=== PATIENT | female | born 1955 | race Caucasian/White ===

== ENCOUNTER 2021-04-19 11:01 | Emergency (ER) | payer OTHER ==
--- NOTE | 2021-04-19 12:17 | ED Physician Documentation ---
History of Present Illness - Stated complaint Stated Complaint: GLF-BLURRY VISION - Chief complaint Chief Complaint: Trauma Ext - History obtained from History obtained from: Patient, Family - History of Present Illness Timing: Today Pain level max: 3 Pain level now: 1 - Additonal information Additional information: 65 year old female states she was walking today and tripped on a curb. landed on her L hand, L knee and L cheek. States had about 3 minutes where she could only see shapes. States that it resolved quickly and has not recurred. No vision changes now. Td UTD. Nothing makes it better or worse. No loss consciousness. No vomiting. No neck pain. No back pain. No numbness or tingling. Review of Systems Constitutional: denies: Fever, Chills GI: denies: Vomiting Skin: denies: Rash Musculoskeletal: denies: Neck pain, Back pain Neurologic: denies: Headache PD PAST MEDICAL HISTORY - Past Medical History Cardiovascular: None Respiratory: None Neuro: None Endocrine/Autoimmune: None GI: None PEN RIDER: None : Retention HEENT: None Psych: None Musculoskeletal: None Derm: Other drug resistant infections - Past Surgical History Past Surgical History: Yes - Present Medications Home Medications: Ambulatory Orders Medication Instructions Recorded Confirmed No Known Home Medications 04/19/21 04/19/21 - Allergies Allergies/Adverse Reactions: Allergies Allergy/AdvReac Type Severity Reaction Status Date / Time codeine AdvReac Itching Verified 04/19/21 11:12 - Social History Does the pt smoke?: No Smoking Status: Never smoker Does the pt drink ETOH?: Yes Does the pt have substance abuse?: No - Immunizations Immunizations are current?: Yes PD ED PE NORMAL - Vitals Vital signs reviewed: Yes - General General: Alert and oriented X 3, No acute distress - HEENT HEENT: PERRL, EOMI, Moist mucous membranes, Other (Normal funduscopic exam bilaterally. No hyphema. Normal pupils.) - Neck Neck: Supple, no meningeal sign - Cardiac Cardiac: RRR - Respiratory Respiratory: No respiratory distress, Clear bilaterally - Derm Derm: Warm and dry - Neuro Neuro: Alert and oriented X 3 - Psych Psych: Normal mood, Normal affect Results - Vitals Vitals: Vital Signs - 24 hr 04/19/21 04/19/21 11:12 12:14 Temperature 36.7 C Heart Rate 66 61 Respiratory 16 16 Rate Blood Pressure 129/71 118/81 H O2 Saturation 96 100 Oxygen O2 Source Room air - Rads (name of study) head CT Radiology: Final report received, EMP read contemporaneously, See rad report (No acute abnormality) PD MEDICAL DECISION MAKING - ED course Complexity details: reviewed results, re-evaluated patient, considered differential, d/w patient ED course: Unclear etiology the patient's symptoms. Normal examination today. Normal funduscopic exam. Normal vision. No acute findings on head CT. We will have her follow-up with her contact and service clerks supervisor when she returns home next week to [place]. They are leaving tomorrow. Normal neurological exam. Normal cranial nerves. Normal gait. Patient counseled regarding signs and symptoms for which I believe and urgent re-evaluation would be necessary. Patient with good understanding of and agreement to plan and is comfortable going home at this time This document was made in part using voice recognition software. While efforts are made to proofread this document, sound alike and grammatical errors may occur. Departure - Departure Disposition: 01 Home, Self Care Clinical Impression: Vision changes, Abrasion Head injury Qualifiers: Encounter type: initial encounter Qualified Code(s): S09.90XA - Unspecified injury of head, initial encounter Condition: Good Instructions: ED Head Injury Closed Follow-Up: your,doctor in 1 week [Other] Comments: Your imaging appears normal today. Your exam is normal today as well. Unclear etiology of your symptoms, would recommend that you follow-up with an contact and service clerks supervisor when you return home for a full dilated eye exam. Return if you worsen.
--- NOTE | 2021-04-19 12:44 | CT Report ---
PROCEDURE: HEAD WO INDICATIONS: Trauma, fall, head injury TECHNIQUE: Noncontrast 4.5 mm thick angled axial sections acquired from the foramen magnum to the vertex. For r adiation dose reduction, the following was used: automated exposure control, adjustment of mA and/or kV according to patient size. COMPARISON: None. FINDINGS: Image quality: Excellent. CSF spaces: Basal cisterns are patent. No extra-axial fluid collections. Ventricles are normal in size and shape. Brain: No midline shift. No intracranial masses or hemorrhage. Tejeda-white matter interface is norm al. Skull and face: Calvarium and visualized facial bones are intact, without suspicious lesions. Sinuses: Visualized sinuses and mastoids are clear. IMPRESSION: No acute intracranial abnormality. Reviewed by: Delonte Guillaume MD on 04/19/2021 12:43 PM PDT Approved by: Delonte Guillaume MD on 04/19/2021 12:43 PM PDT Station ID: [id number]
[2021-04-19 13:06] VITALS: BP 124/77
== END 2021-04-19 13:05 | disposition home or self-care (01) ==
LOC: ED 11:01
DX: S09.90XA Unspecified injury of head, initial encounter (principal); H53.8 Other visual disturbances; T14.8XXA Other injury of unspecified body region, initial encounter; W01.0XXA Fall on same level from slipping, tripping and stumbling without subsequent striking against object, initial encounter; Y93.01 Activity, walking, marching and hiking; Y92.480 Sidewalk as the place of occurrence of the external cause
CPT/HCPCS: 99284